=== PATIENT | female | born 1950 | race Caucasian/White ===

== ENCOUNTER 2019-05-04 15:05 | Emergency (ER) | payer BC ==
[~2019-05-04] VITALS: Ht 157.5 cm; Wt 99.8 kg
[2019-05-04 15:35] VITALS: BP_SYST 157
[2019-05-04 16:45] VITALS: BP_SYST 155
== END 2019-05-04 16:45 | disposition home or self-care (01) ==
LOC: SED 15:05
DX: S00.03XA Contusion of scalp, initial encounter (principal); I10 Essential (primary) hypertension; Z88.0 Allergy status to penicillin; W11.XXXA Fall on and from ladder, initial encounter; Y93.89 Activity, other specified; Y92.89 Other specified places as the place of occurrence of the external cause; Y99.8 Other external cause status
CPT/HCPCS: 70450-TC; 99284